=== PATIENT | female | born 1995 | race African-American/Black ===

== ENCOUNTER 2023-06-27 13:39 | Emergency (ER) | payer MEDICAID ==
[~2023-06-27] VITALS: Ht 152.4 cm; Wt 72.6 kg
[2023-06-27 13:48] VITALS: BP_SYST 147; PULSE 100; RESP 20; TEMP 98.2; O2SAT 96
[2023-06-27 13:59] VITALS: BP_SYST 147; PULSE 88; RESP 20; TEMP 98.2; O2SAT 96
== END 2023-06-27 13:52 ==
LOC: SED 13:39
DX: Z00.00 Encounter for general adult medical examination without abnormal findings (principal)
CPT/HCPCS: 99283